=== PATIENT | female | born 1970 | race Caucasian/White ===

== ENCOUNTER 2016-08-23 22:34 | Emergency (ER) | payer BC ==
[~2016-08-23] VITALS: Ht 170.2 cm; Wt 92.3 kg
[~2016-08-23 22:34] MED LIST: ADVIL200 MG PO; FIORICET 325 MG1 TA1 PO; IBU600 MG PO; NORCO 325 MG-51 TAB PO; PERCOCET 325 MG1 TA2 PO; PRILOSEC 20MG20 MG PO; TYLENOL 500MG500 MG PO; ZOFRAN 4MG T4 MG/TAB PO; ZOLOFT 50MG50 MG PO
[2016-08-23 22:43] VITALS: TEMP 98.7
[2016-08-23] MEDS ORDERED: IMITREX 25MG TA25 MG PO (22:47)
[2016-08-23] MEDS ORDERED: PREMARIN .3MG0.3 MG PO (22:48)
[2016-08-23] MEDS ORDERED: NORCO 325 MG-51 TAB PO (23:48)
[2016-08-24 00:15] VITALS: BP 123/83; PULSE 82
== END 2016-08-24 00:17 | disposition home or self-care (01) ==
LOC: COL.ER 22:34
DX: T20.27XA Burn of second degree of neck, initial encounter (principal); T20.211A Burn of second degree of right ear [any part, except ear drum], initial encounter; W39.XXXA Discharge of firework, initial encounter